=== PATIENT | male | born 1970 | race Caucasian/White ===

== ENCOUNTER → 2019-10-25 11:34 | Outpatient (CLI) | payer OTHER, SELFPAY ==
--- NOTE | 2019-10-25 | IMM_PTH ---
PATIENT: TODD BRIGGS Jr. LOC: [facility] U#:[id number] AGE/SX: 55/M ROOM: RE10/25/[address]: Dr. Wayne Gilman MD : 1970 BED: DIS: SPEC #: [id number] RECD: 10/26/19 11:35 STATUS: CHRISTINE REQ #: [id number] TOMEKA: 10/25/19 00:[address]: Wayne Gilman DEPT: IMMUNOHISTOCHEMISTRY RECD BY: Gabby Johnson ENTERED: 10/26/19 11:36 SP TYPE: IMMUNO OTHR DR: Dr. Stevo Ahn, Tissues: C - PROSTATE RIGHT F - PROSTATE LEFT Procedures: 34BE12 (add) P40 (add) 34BE12 (initial) PHYSICIAN & INSTITUTION [place] [id number] SPECIMEN INFORMATION: Tissue Source: C - Right prostate, base, core biopsy, F - Left prostate, base, core biopsy Clinical Info: R97.20 Specimen Number: [id number] C & F CPT code: 29209, 22332 x3 METHODOLOGY: Deparaffinized sections of prefer/formalin-fixed tissue or PAP/DQ stained slides are incubated with monoclonal/polyclonal antibodies/oligonucleotide probes. Localization is made via biotin free immunoperoxidase method. Appropriate controls are performed and reacted as expected. Results on target cell population are indicated in the following table: RESULTS: ANTIBODY / CLONE RESULT Block C P40 (BC28) negative 34BE12 (34BE12) negative Block F P40 (BC28) positive 34BE12 (34BE12) positive These tests were developed and their performance characteristics determined by [facility]. They may not have been cleared or approved by the U.S. Food and Drug Administration. The FDA has determined that such clearance or approval is not necessary. The above immunohistochemical/dualISH markers are ordered and reviewed by the Pathologist. INTERPRETATION: C. Right prostate, base, core biopsy: Adenocarcinoma. F. Left prostate, base, core biopsy: Negative for adenocarcinoma. SJ:bradley 10/27/19
--- NOTE | 2019-10-25 | PROSBIL_PTH ---
PATIENT: TODD BRIGGS Jr. LOC: [facility] U#:[id number] AGE/SX: 55/M ROOM: RE10/25/[address]: Dr. Wayne Gilman MD : 1970 BED: DIS: SPEC #: [id number] RECD: 10/25/19 11:05 STATUS: CHRISTINE REYuridia #: [id number] TOMEKA: 10/25/19 00:[address]: Wayne Gilman DEPT: SURGICAL PATHOLOGY RECD BY: Mani Swain ENTERED: 10/25/19 12:45 SP TYPE: PROST BX SHANTI DR: Dr. Stevo Ahn, DO Tissues: A - PROSTATE RIGHT B - PROSTATE RIGHT C - PROSTATE RIGHT D - PROSTATE LEFT E - PROSTATE LEFT F - PROSTATE LEFT Procedures: PROSTATE BX HEADER OPERATION: Prostate biopsy PRE-OP DIAGNOSIS: R97.20 TISSUE SUBMITTED: A - Right apex, B - Right mid, C - Right base, D - Left apex, E - Left mid, F - Left base MICROSCOPIC DIAGNOSIS A. Right prostate, apex, core biopsy: Prostatic adenocarcinoma. Sciota grade: 3+3=6 Number of cores involved: 1/1 Proportion of tissue involved: ~30% Perineural invasion: Not identified. Greatest tumor length: 0.3 cm Focal mild acute and chronic inflammation. B. Right prostate, mid, core biopsy: Prostatic tissue, negative for malignancy. Focal atrophy and mild chronic inflammation. C. Right prostate, base, core biopsy: Prostatic adenocarcinoma. Sciota grade: 3+3=6 Number of cores involved: 1/2 Proportion of tissue involved: <5% Perineural invasion: Not identified. Greatest tumor length: 0.1 cm Focal atrophy and minimal acute and chronic inflammation. See comment. D. Left prostate, apex, core biopsy: Prostatic tissue, negative for malignancy. Focal mild chronic inflammation. E. Left prostate, mid, core biopsy: Prostatic tissue, negative for malignancy. Focal mild chronic inflammation. F. Left prostate, base, core biopsy: Prostatic tissue, negative for malignancy. Focal atrophy, moderate chronic inflammation and minimal acute inflammation. See comment. SJ:bradley 10/26/19 COMMENT C & F. Immunohistochemistry ([id number]) supports the above diagnosis. Case has been reviewed in consultation with Dr. Huynh who concurs with the above diagnosis. IDC:AM MICROSCOPIC DESCRIPTION Slides are reviewed. GROSS DESCRIPTION A - Received is one container designated prostate, right apex. The specimen consists of one elongated fragment of light chambers-white soft tissue measuring 1 cm in length and 0.1 cm in diameter. The specimen is totally submitted in one cassette. B - Received is one container designated prostate, right mid. The specimen consists of two elongated fragments of light chambers-white soft tissue each measuring 1.5 cm in length and 0.1 cm in diameter. The specimen is totally submitted in one cassette. C - Received is one container designated prostate, right base. The specimen consists of two elongated fragments of light chambers-white soft tissue each measuring 1 cm in length and 0.1 cm in diameter. The specimen is totally submitted in one cassette. D - Received is one container designated prostate, left apex. The specimen consists of one elongated fragment of light chambers-white soft tissue measuring 1 cm in length and 0.1 cm in diameter. The specimen is totally submitted in one cassette. E - Received is one container designated prostate, left mid. The specimen consists of two elongated fragments of light chambers-white soft tissue each measuring 1 cm in length and 0.1 cm in diameter. The specimen is totally submitted in one cassette. F - Received is one container designated prostate, left base. The specimen consists of two elongated fragments of light chambers-white soft tissue each measuring 1.5 cm in length and 0.1 cm in diameter. The specimen is totally submitted in one cassette. / AM:bradley 10/25/19 TC:0 [facility]: 66520 x6 ADDENDUM ADDENDUM ADDENDUM ADDENDUM ADDENDUM ADDENDUM ADDENDUM ADDENDUM 11/24/2019 10:09 ADDENDUM 11/24/2019 10:09 ADDENDUM 11/24/2019 10:09 ADDENDUM 11/24/2019 10:09 ADDENDUM 11/24/2019 10:09 An order for Oncotype testing was received from Dr. Gilman. This necessitated case review, block and slide selection by pathologist at [facility]. Genomic Prostate Score = 24 Results of the complete Oncotype testing ([facility] report) are viewable in EMR under: Reports - Pathology - Lab Pathology Report, Scanned.
== END ==
PROVIDERS: PCP Family Medicine; Referring Provider Urology; Visit Provider Urology
DX: R97.20 Elevated prostate specific antigen [PSA] (principal)
CPT/HCPCS: 88305; 88341; 88342; G0416

== ENCOUNTER 2020-03-08 05:30 | Day surgery (SDC) | payer OTHER, SELFPAY ==
--- NOTE | 2020-03-03 08:09 | EKG12_ITS ---
Test Reason : PRE-OP Blood Pressure : / mmHG Vent. Rate : 047 BPM Atrial Rate : 047 BPM P-R Int : 210 ms QRS Dur : 104 ms QT Int : 442 ms P-R-T Axes : 069 053 044 degrees QTc Int : 391 ms Sinus bradycardia with 1st degree A-V block Otherwise normal ECG Confirmed by GOLDY GIL, BECK ([id number]), editor department WILBUR DELUNA ([id number]) on 03/06/2020 9:47:03 AM Referred By: Wayne Gilman Confirmed By:MELANIE WINSLOW MD
[2020-03-03 08:38] LABS: Hematocrit 43.1 % (40-54); Hemoglobin 14.4 g/dL (13.0-16.5); Mean Corp Hgb Conc 33.4 g/dL (32-36); Mean Corpuscular Volume 92.7 fL (80-94); Mean Platelet Vol. 10.3 fl (6.2-12.0); Platelet Count 281 K/mm3 (150-450); RBC Distribution Width CV 13.1 % (11.6-14.6); RBC Distribution Width SD 44.5 fl (35.1-43.9); Red Blood Count 4.65 M/mm3 (4.6-6.2)
[2020-03-03 08:51] LABS: Anion Gap 4 (5-15); BUN 24 mg/dL (7-18); BUN/Creat Ratio 23.3 RATIO (10-20); Calcium,Total 9.1 mg/dL (8.5-10.1); Chloride 107 mmol/L (98-107); Creatinine, Serum 1.03 mg/dL (0.70-1.30); EST Glomerular Filtration Rate 81 mL/min (>60); Est Glom Filt Rate - Afr Amer 98 mL/min (>60); Glucose 112 mg/dL (74-106); Potassium 4.2 mmol/L (3.5-5.1); Sodium Level 141 mmol/L (136-145)
[2020-03-08] VITALS (12 sets, daily range): BP systolic 95–137; BP diastolic 57–99; PULSE 50–71; RESP 15–18; TEMP 36.4–37.5; O2SAT 97–100; BMI 32.4
--- NOTE | 2020-03-08 | PROST_PTH ---
PATIENT: TODD BRIGGS Jr. LOC: [facility] [place] U#:[id number] AGE/SX: 49/M ROOM: RE03/08/[address]: Dr. Wayne Gilman MD : 1970 BED: DIS: 03/09/2020 SPEC #: [id number] RECD: 03/08/20 12:41 STATUS: CHRISTINE REQ #: [id number] TOMEKA: 03/08/20 00:[address]: Wayne Gilman DEPT: SURGICAL PATHOLOGY RECD BY: Kendrick Hoyt ENTERED: 03/08/20 12:42 SP TYPE: PROSTATE OTHR DR: MD Raman Schaeffer, AUDIO/VIDEO TECHNICIAN-C Tissues: A - Lymph node of pelvis, NOS B - Lymph node of pelvis, NOS Prostate, NOS Procedures: Surgery Specimen Level V Surgery Specimen Level HEADER OPERATION: Lap robotic radical prostatectomy, nerve monitoring PRE-OP DIAGNOSIS: Prostate cancer TISSUE SUBMITTED: A - Right pelvic lymph node, B - Left pelvic lymph node, C - Prostate MICROSCOPIC DIAGNOSIS A. Right pelvic lymph node, biopsy: One out of one lymph node, negative for carcinoma. B. Left pelvic lymph node, biopsy: One out of one lymph node, negative for carcinoma. C. Prostate, radical prostatectomy: Adenocarcinoma. See cancer checklist below. AM:bradley 03/10/20 COMMENT PROSTATE CANCER (RADICAL) SUMMARY: Procedure: Radical Prostatectomy Prostate Size: Weight: 39.8 gm Size: 4 x 3.5 x 3.5 cm Histologic type: Adenocarcinoma Histologic grade: 6 (3+3); Group 1 Percent of Pattern 4: Not applicable Percent of Pattern 5: Not applicable Intraductal Carcinoma: Not identified Tumor Quantitation: 2.5 x 2 x 0.8 cm Extraprostatic Extension: Not identified Urinary Bladder Neck Invasion: Not identified Seminal Vesicle Invasion: Not identified Lymphovascular Invasion: Not identified Perineural Invasion: Present, focal Margins: Positive for carcinoma Location of positive margin: posterior, apical portion of prostate, focal. Regional Lymph Nodes: Number of lymph nodes involved by carcinoma: 0 Total Number of Lymph Nodes Examined: 2 Treatment Effect: Unknown Additional Pathologic Findings: Benign nodular hyperplasia, glandular atrophy and chronic inflammation. PATHOLOGIC STAGE: T2 N0 Mx The above summary is in compliance with [employer] [employer] (CAP) Cancer Protocols Checklist and [place] [employer] Committee on Cancer (AJCC), Staging Manual, 8th Ed. Case has been reviewed in consultation with Dr. Joe who concurs with the above diagnosis. IDC:SJ MICROSCOPIC DESCRIPTION Slides are reviewed. GROSS DESCRIPTION A - Received in fixative is one container labeled with the patient's name and designated right pelvic lymph node. The specimen consists of a piece of adipose tissue containing a lymph node measuring 2.5 x 1.5 x 0.5 cm. The specimen is bisected and submitted entirely in one cassette. Section will be submitted after overnight fixation. / : 03/08/20 B - Received in fixative is one container labeled with the patient's name and designated left pelvic lymph node. The specimen consists of a piece of adipose tissue measuring 4 x 1.5 x 0.5 cm. One lymph node is identified. The specimen is sectioned and submitted entirely in two cassettes. Section will be submitted after overnight fixation. / SJ: 03/08/20 C - Received in fixative is one container labeled with the patient's name and designated prostate. The specimen consists of a prostatectomy specimen consisting of prostate and attached right seminal vesicle and left seminal vesicle and vas deferens weighing 39.8 gm. The prostate measures 4 cm transversely, 3.5 cm anterior posteriorly and 3.5 cm craniocaudally. The right seminal vesicle is not identified. The right vas deferens measures 3 cm in length and 0.5 cm in diameter and left seminal vesicle measures 3?x?1.5 x 0.7 cm and left vas deferens measures 2 cm in length and 0.5 cm in diameter. The prostate is inked as follows: anterior surface - yellow, posterior surface - black, right lateral surface - blue and left lateral surface - green. The right vas deferens and left seminal vesicle and vas deferens are inked as follows: posterior surface - black, anterior surface right vas deferens - blue, anterior surface left seminal vesicle and vas deferens - green. Sections do not reveal any mass lesion. Audio Visual Aids Director sections are submitted in 20 cassettes as follows: 1 - right seminal vesicle, 2 - left seminal vesicle and vas deferens, 3 - apical (urethral) margin, enface, 4 - bladder base margin, enface, 5-9 - apical portion prostate, 1013?- middle portion prostate, 14-20 - basal portion prostate (20 contains the most basal portion of prostate). / JAYME:bradley 03/09/20 TC:0 CPT: 33512, 07627 x2
[2020-03-08] MEDS: Lactated Ringers 1,000 ML 100 ML IV ×3 (06:06→19:21)
[2020-03-08] MEDS: Cefazolin 2 GM in 0.9% Normal Saline 100 ML IV (07:20)
--- NOTE | 2020-03-08 07:20 | PCM.HP.STD ---
Problem List (1) Prostate cancer Status: Acute History of Present Illness Date of Admission: 03/08/20 Chief Complaint: Prostate cancer The patient is a 49 year old male diagnosed with prostate cancer we talked about the options of management including active surveillance, radiation, and surgery. He wants to proceed with a laparoscopic robotic assisted bilateral nerve sparing surgery and lymph node dissection. We talked about the risk of surgery including bladder control and incontinence and the risk of losing erections permanently. After full discussion with the patient in the office patient signed the consent form and we can proceed with a radical prostatectomy with bilateral nerve sparing. Past Medical History Allergies No Known Allergies Allergy (Verified 03/08/20 05:36) Home Medications: Ambulatory Orders Medication Instructions Recorded Ibuprofen 200 mg PO PRN PRN 03/01/20 Surgical History: no surgical history Lives: Spouse/ Significant Other Smoking Status: Former smoker Tobacco Use: Chew Alcohol: None Drugs: None - *Family History Maternal History Items: No pertinent history Review of Systems Constitutional: Denies: Chills, Fever, Weight Change HEENT: Denies: Head Aches, Sinus Congestion, Sinus Drainage Cardiovascular: Denies: Chest Pain, Palpitations Respiratory: Denies: Cough, Shortness of breath at rest, Sputum production Gastrointestinal: Denies: Abdominal Pain, Nausea, Vomiting Genitourinary: Denies: Dysuria Musculoskeletal: Denies: Joint Pain, Joint Tenderness Skin: Denies: Rash, Wounds Neurological: Denies: Numbness, Tingling, Focal weakness Psychiatric: Denies: Anxiety, Depression, Homicidal Ideations, Suicidal Ideations Hematologic/ Lymphatic: Denies: Easy Bruising, Easy Bleeding VTE Information - Inpt Only VTE Present on Admission: No VTE Mechan Device Prophylaxis: SCD's Patient Problems: Active and Suspected Problems Prostate cancer (Acute) - Physical Exam Vitals/I&O's: Vital Signs Temp Pulse Resp Pulse Ox 97.8 F 66 15 100 03/08/20 05:52 03/08/20 05:52 03/08/20 05:52 03/08/20 05:52 Oxygen Delivery Method Room Air Weight: 88.4 kg Body Mass Index (BMI) 32.4 General: Alert, Oriented x3, Cooperative HEENT: Atraumatic, PERRLA, EOMI, Normocephalic Neck: Supple, No JVD, Negative Carotid Bruits Lungs: Clear to auscultation, Normal air movement Cardiovascular: Regular rate, No murmurs Abdomen: Bowel Sounds Present, Soft, Non Tender Extremities: No edema, Capillary Refill Less than 3 Seconds Skin: No rashes, No breakdown Musculoskeletal: No Tenderness to Palpation of Joints or Extremities Neurological: Cranial nerves II-XII grossly intact Psych/Mental Status: Normal Affect, Appropriate Current Medications Cefazolin Sodium 2 gm/ Sodium (Chloride) 110 mls @ 150 mls/hr IV PREOP ONE Stop: 03/08/20 07:43 Lactated Ringer's () 1,000 mls @ 100 mls/hr IV .Q10H ANA Last Admin: 03/08/20 06:06 Dose: 100 mls/hr Documented by: Lactated Ringer's () 1,000 mls @ 100 mls/hr IV .Q10H ANA Last Admin: 03/08/20 06:12 Dose: 100 mls/hr Documented by: Assessment/Plan All Active Problems Prostate cancer (Acute) Plan to proceed with laparoscopic robotic assisted bilateral nerve sparing radical prostatectomy.
--- NOTE | 2020-03-08 07:26 | DCINST_ITS ---
Discharge Diet: Light diet - advance as tolerated Discharge Activity: May Not Drive, May not drive while taking narcotic pain medications., May Shower Return to work on:: 04/19/20 May resume sexual activity in: 6 weeks Call your doctor if your incision/area has: Continuous Slow Oozing, Sudden Increased Bleeding, Increased Pain/ Swelling, Increased Redness, Foul Smelling Discharge, Swelling at the incision site Catheter: Harris to leg bag, Harris to large bag Drain: [place] Instructions: Radical Prostatectomy Allergies/Adverse Reactions: Allergies No Known Allergies Allergy (Verified 03/08/20 05:36) Medications to take at Discharge Ibuprofen 200 mg PO PRN PRN 03/01/20 Ciprofloxacin [Cipro] 500 mg PO BID #14 tab 03/08/20 Docusate Sodium [Colace] 100 mg PO BID #20 cap 03/08/20 Hydrocodone/Acetaminophen [[place] 5-325 Tablet] 1 ea PO Q4H PRN PRN 5 Days #14 tab 03/08/20 The following prescriptions were given: Ciprofloxacin [Cipro] 500 mg PO BID #14 tab Transmission Status: Sent to [address] Docusate Sodium [Colace] 100 mg PO BID #20 cap Transmission Status: Sent to [address] Hydrocodone/Acetaminophen [[place] 5-325 Tablet] 1 ea PO Q4H PRN PRN 5 Days #14 tab PRN Reason: Pain Score 1-10/10 Transmission Status: Received by [address] Primary Care Physician: Raman Alberto NP-C [Primary Care Provider] - Test Results: Test results from this visit will be discussed in further detail at your follow- up appointment, if applicable. Please Follow Up With: Wayne Gilman MD When: please call to make an appointment- next . Proposed Discharge Date: 03/09/20
[2020-03-08] MEDS: Bupivacaine Mpf 0.5% 30 ML VIAL (08:06)
--- NOTE | 2020-03-08 11:16 | OP.PCM_ITS ---
Problem List (1) Prostate cancer Status: Acute Report of Operation Date of Procedure: 03/08/20 Pre-Operative Diagnosis: Prostate cancer Post-Operative Diagnosis: Same Surgery/Procedure Performed:: 1 Laparoscopic robotic assisted radical prostatectomy with bilateral nerve sparing. 2 Bilateral pelvic lymph node dissection. 3 Suture suspension of the urethra. 4 EMG monitoring of the pelvic muscles and urethral sphincter. Description of Surgical Findings:: 49-year-old male was taken back to the operating room after smooth induction of general anesthesia he was placed in dorsal lithotomy position. The pressure points were all padded. He underwent general anesthesia with endotracheal intubation. They we shaved and prepped and draped the abdomen penis in sterile fashion. An 18 [place] Harris catheter was introduced into the bladder. 10 cc were put into the balloon put back on traction and then allowed to drain the bladder completely. I infiltrated the umbilicus with 10 cc of Marcaine made a small incision semicircular in the umbilicus. I then advanced the Veress needle into the peritoneal cavity placed a Veress needle into the peritoneal cavity insufflated the peritoneum with CO2 gas. Once the peritoneum was insufflated with CO2 gas then we placed the camera trocar this was a 1012 camera trocar with a balloon pulled back looked inside the abdomen inspected the abdomen there was no sign of injury or trauma within the abdomen we put the patient in full Trendelenburg the pelvis was wide open. I then we then placed our robotic trochars the first robotic trocar was placed in the right side we made a small incision in the skin infiltrated the skin with Marcaine and then used a needle to find the placement of the trocar and then advanced the trocar into the c orrect spot on the right side of the abdomen we then proceeded with the placement of the air seal port and the 5 mm suction port and a second robotic trocar and the third robotic trocar in a similar fashion. I then went into the abdomen with 0 degree lens right arm scissors left arm bipolar and the existing arm was a pro-grasp first incised the peritoneum below the bladder and open up the peritoneum over the seminal vesicles and vas deferens the entire dissection was done without any thermal cautery to avoid any injury to the nerves. Patient desired to have a bilateral nerve sparing procedure. So using mostly a thermia and just a little bit of bipolar I dissected out the right vas deferens traced it up to the insertion point of the prostate I then dissect out the left vas deferens I then elevated up both vas deferens and came to the prostate and swept the Denonvilliers' fascia from the underside of the prostate all the way to the apex once this was swept off the underside of the prostate apex I then dissected out the left seminal vesicle there was some small perforating blood vessels going through the seminal vesicles these were controlled with bipolar cautery minimal amount of use I then went to the left side and same thing dissected the left seminal vesicle once the vas deferens and seminal vesicle on both the left and right side were complete dissected free we inspected for bleeding there was no bleeding we then pulled out of the pelvis we then dropped the bladder by incising the peritoneum on the medial umbilical ligaments all the way down to the vas deferens on the right side and the medial umbilical ligament all the way down the down to the vas deferens and the left side I then entered the space of Retzius we cleaned out all the fat in the space of Retzius we transected through the medial and median umbilical ligament to the attachments of the bladder to the umbilicus we then pulled the bladder on traction we created the space of Retzius nicely clearing out all the fat above the prostate. Once this was done then we went to the right pelvic lymph nodes identified the external iliac artery identified the external iliac vein and identified the junction of the artery and vein up to the pelvis identified the note of Palmer and then we took the lymph node tissue off the lateral pelvic sidewall we use extensive amount of clips to control the any vascular bleeding the obturator nerve was identified during this dissection it was spared of any injury as we dissected the lymph nodes off the right pelvic sidewall these lymph nodes were sent off as a perma nent specimen after complete dissection on the right side we then went to the left side again the both borders of the lymphocyte dissection were identified the lateral pelvic wall the note of Palmer the external left iliac vein and the obturator nerve and then we took all the lymph node tissue within the space after the nerve was identified we transected the lymphatic vessels we used clips to control the lymphatic vessels and again we had specimen from the left side this was sent off as a specimen from the left side after the completion of the left lymph node dissection. We then went to the prostate we incised the endopelvic fascia on the right side the prostate all the way to the apex incised the PET fascia on the left side the prostate all the way to the apex we swept the levator muscles off the prostate all the way to the apex to allow for the apical dissection we then dissected the dorsal vein complex circumferentially I then used the pro-grasp to Parks and and grass the entire dorsal vein complex we then placed a stitch [id number] stitch in the dorsal vein complex for to control the vein once this was done then we pulled back to the bladder neck the junction between the bladder and the prostate was identified we then dissected with minimal electrocautery between the bladder and the prostate using bipolar to control any bleeders and we came across the catheter the balloon of the catheter was deflated with him and pulled the catheter up traction this allowed then to dissect between the bladder and the prostate posteriorly until we encountered the seminal vesicle and vas deferens posteriorly. I then placed the EMG electrodes into the abdomen this was done through needle that was introduced to the midline abdomen we then buried the electrodes through fat to keep him on the lateral sidewall and both electrodes was then placed and the levator muscles in the pelvis. We then used bipolar stimulation on the electrodes to check the left side on the left side we were not able to identify the action potential this was even done before any dissection the right side we able to identify very good action potential. After doing the EMG tracing to identify the external branches of the pudendal nerve to avoid injury to these nerve structures once this was done then I proceeded with the nerve sparing dissection I first incised over the prostate down to the capsule and then very delicately I swept the neurovascular tissue laterally off the anterior part of the capsule working my way all the way posterior to the capsule and then working my way back to sweep the nerves off the right side of the prostate all the way back to the junction where the nerves came underneath the pedicle the pedicle the prostate was taken with clips I then released the nerve vascular bundle further up on the right side tracing all the way underneath the prostate all the way underneath the urethra until was free off the prostate. We then went to the left side and had similar nerve dissection coming underneath the neurovascular bundle complex freeing it off the prostate and the left side working away retrograde fashion all the way back to the pedicle on the left side the pedicle was taken with clips the prostate was then elevated and then we swept the neurovascular tissue off the left underside of the prostate over the to the apex the right side went very nicely the left side there was a small amount of tissue that did not come off with the neurovascular bundle but otherwise I was very satisfied with the nerve dissection on both sides we then went to the dorsal vein complex we transected through the dorsal vein complex. After the dissection was done we went back to the EMG tracing and we identified the external pudendal nerve through the EMG tracing using the action potential again we can get a strong action potential on the right side and no action potential on the on the left side just like as before there was no change in the action potential from the prior dissection. At this point then we performed this suspension of the urethra suture stitch was went underneath the urethra and suspended up to the pubic bone this was to help control with incontinence after the suspension was completed then we transected through the urethra through the and it came across the catheter the prostate was then completely free we put the prostate in an Endo Catch bag and then we performed the anastomosis of the urethra to the bladder neck this was done over a catheter with her continuous V lock stitch in a watertight fashion after the end of the anastomosis was completed we checked for leakage there was 1 small And an extra stitch was placed here and then there was no leakage. We then next we then transferred the Endo Catch back to the robotic camera trocar we undocked the robot we closed the air seal port with a Yonatan Dutton stitch we extracted the prostate to the umbilicus we closed the umbilicus with 2 [id number] stitches and we tied down the air seal port stitch. Patient's anesthetic was reversed he is currently being extubated his incisions were closed with subcuticular stitches and bandages were placed. I was present during the entire case. Blood loss was only about 100 cc. And all needles and sponges were accounted for. Type of Anesthesia:: General Drains: Harris 18 fr - Admit VTE Documentation VTE Present on Admission: No VTE Mechan Device Prophylaxis: SCD's
[2020-03-08] MEDS: Ketorolac 15 MG/ML Vial IV ×2 (13:29→19:21)
[2020-03-08] MEDS: Ciprofloxacin 500 MG Tablet PO ×2 (15:07→21:10)
[2020-03-09] MEDS: Ketorolac 15 MG/ML Vial IV ×2 (01:02→06:43)
[2020-03-09] MEDS: 0.9% Saline Lock 10 ML Syringe IV ×2 (01:03→06:43)
[2020-03-09 01:05] VITALS: BP 102/56; PULSE 45; RESP 16; TEMP 36.9; O2SAT 98
[2020-03-09] MEDS: Lactated Ringers 1,000 ML 100 ML IV (05:05)
[2020-03-09 05:12] VITALS: BP 113/63; PULSE 45; RESP 16; TEMP 36.8; O2SAT 98
[2020-03-09] MEDS: Ciprofloxacin 500 MG Tablet PO (09:43)
[2020-03-09 09:48] VITALS: BP 110/67; PULSE 45; RESP 18; TEMP 36.6; O2SAT 98
== END 2020-03-09 10:36 | disposition home or self-care (01) ==
LOC: SDC 05:31 → AC 05:31 → MS3 03-09 08:12
PROVIDERS: Anesthesiology; PCP Nurse Practitioner Primary Care; Referring Provider Urology; Visit Provider Urology
PROC: 0VT04ZZ Resection of Prostate, Percutaneous Endoscopic Approach (ICD-10-PCS; CPT 55866; principal; 2020-03-08 07:10)
DX: C61 Malignant neoplasm of prostate (principal); Z11.59 Encounter for screening for other viral diseases; F17.220 Nicotine dependence, chewing tobacco, uncomplicated; I44.0 Atrioventricular block, first degree; R00.1 Bradycardia, unspecified
CPT/HCPCS: 00865; 38571; 55866; S2900; 36415; 80048; 85027; 86850; 86900; 86901; 87635; 88307; 88309; 93005; G2023; J7120; A4216; J2405; U0003